=== PATIENT | male | born 1960 | race Caucasian/White ===

== ENCOUNTER 2018-01-31 01:17 | Emergency (ER) | payer MEDICAID ==
[~2018-01-31] VITALS: Ht 170.2 cm; Wt 84.8 kg
[2018-01-31 02:11] LABS: Basophils # (auto) 0.1 uL; Eosinophils # (auto) 0.1 uL; Eosinophils % (auto) 0.9 % (0.0-7.0); Hematocrit 40.1 % (41.0-53.0); Lymphocytes % (auto) 23.2 % (10.0-50.0); Mean Corpuscular Hemoglobin 32.6 pg (28.0-32.0); Mean Corpuscular Hgb Conc. 34.9 g/dL (32.0-36.0); Mean Corpuscular Volume 93.5 fL (80.0-100.0); Monocytes % (auto) 11.6 % (0.0-12.0); Neutrophils # (auto) 5.4 uL; Neutrophils % (auto) 63.3 % (37.0-80.0); Nucleated Red Blood Cells % 0.1 %; Platelet Count (auto) 252 10^3/uL (140-450); Red Blood Cells 4.29 10^6/uL (4.5-5.90); Red Cell Distribution Width 12.4 % (11.8-14.3); White Blood Cell 8.6 10^3/uL (4.4-10.8)
[2018-01-31] MEDS ORDERED: cloNIDine HCL 0.1 MG TAB PO ONE (02:15)
[2018-01-31 02:22] LABS: Albumin 3.4 g/dL (3.4-5.0); BUN/Creatinine Ratio 9.2; Calcium 8.4 mg/dL (8.5-10.1); Magnesium 1.7 mg/dL (1.6-2.6)
[2018-01-31 02:23] LABS: Potassium 2.7 mmol/L (3.5-5.1)
[2018-01-31 02:27] LABS: Bilirubin, Total 0.7 mg/dL (0.2-1.0); INR 0.93 (0.9-1.15); Partial Thromboplastin Time 27.1 sec (23.78-33.04); Total Protein 7.9 g/dL (6.4-8.2)
[2018-01-31] MEDS ORDERED: POTASSIUM CHL 20 Meq TABLET PO ONE (02:30)
[2018-01-31 02:55] VITALS: BP 132/92
== END 2018-01-31 03:02 | disposition left against medical advice (07) ==
LOC: ER 01:19
DX: R07.89 Other chest pain (principal); I10 Essential (primary) hypertension; R41.82 Altered mental status, unspecified; Z53.21 Procedure and treatment not carried out due to patient leaving prior to being seen by health care provider
CPT/HCPCS: 36415; 70450; 71045; 80053; 80320; 83735; 83880; 84484; 85025; 85610; 85730; 93005

== ENCOUNTER → 2018-08-31 | Emergency (ER) | payer MEDICAID | END | disposition left against medical advice (07) | LOC: ER 21:59 | DX: R10.9 Unspecified abdominal pain (principal); Z53.21 Procedure and treatment not carried out due to patient leaving prior to being seen by health care provider ==

== ENCOUNTER 2018-12-21 20:04 | Emergency (ER) | payer MEDICAID ==
[~2018-12-21] VITALS: Ht 170.2 cm; Wt 90.7 kg
[2018-12-21 20:37] VITALS: BP 175/85
[2018-12-21] MEDS ORDERED: SODIUM CHLORIDE 0.9% 500 ML IV ONE (20:59)
[2018-12-21] MEDS ORDERED: ASPirin 81 mg TAB PO ONE (21:00)
[2018-12-21] MEDS ORDERED: MORPHINE SULF INJ 2 MG/ML SYRINGE 1ML IV ONE (21:00)
[2018-12-21 21:25] LABS: Basophils # (auto) 0 uL; Basophils % (auto) 0.7 % (0.0-2.0); Eosinophils # (auto) 0.2 uL; Eosinophils % (auto) 3.6 % (0.0-7.0); Hematocrit 42.3 % (41.0-53.0); Hemoglobin 14.6 g/dL (13.5-17.5); Lymphocytes # (auto) 2.4 uL; Lymphocytes % (auto) 36.8 % (10.0-50.0); Mean Corpuscular Hemoglobin 32.6 pg (28.0-32.0); Mean Corpuscular Hgb Conc. 34.4 g/dL (32.0-36.0); Mean Corpuscular Volume 94.7 fL (80.0-100.0); Monocytes # (auto) 0.5 uL; Monocytes % (auto) 7.3 % (0.0-12.0); Neutrophils # (auto) 3.4 uL; Neutrophils % (auto) 51.6 % (37.0-80.0); Platelet Count (auto) 204 10^3/uL (140-450); Red Blood Cells 4.47 10^6/uL (4.5-5.90); Red Cell Distribution Width 13.5 % (11.8-14.3); White Blood Cell 6.6 10^3/uL (4.4-10.8)
[2018-12-21] MEDS ORDERED: THIAMINE 100mg/ml INJ (200mg/2ml VIAL) IV ONE (21:30)
[2018-12-21 21:36] LABS: Albumin 3.7 g/dL (3.4-5.0); Anion Gap 10 (5-15); Blood Urea Nitrogen 16 mg/dL (7-18); Calcium 8.7 mg/dL (8.5-10.1); Carbon Dioxide 26 mmol/L (21-32); Chloride 107 mmol/L (98-107); Glucose 113 mg/dL (74-106); Magnesium 2.4 mg/dL (1.6-2.6); Potassium 3.4 mmol/L (3.5-5.1); Sodium 143 mmol/L (136-145)
[2018-12-21 21:45] LABS: Alanine Aminotransferase 112 U/L (16-61); Alkaline Phosphatase 107 U/L (45-117); Aspartate Aminotransferase 116 U/L (15-37); Bilirubin, Total 0.3 mg/dL (0.2-1.0); GFR African American 92 mL/min; GFR Non-African American 76 mL/min; Total Protein 7.3 g/dL (6.4-8.2)
[2018-12-21 22:21] LABS: INR 0.92 (0.9-1.15); Partial Thromboplastin Time 25.9 sec (23.78-33.04); Prothrombin Time 9.9 sec (9.27-12.13)
[2018-12-21 23:50] LABS: Acetaminophen < 2.0 ug/mL (10-30); Salicylate < 1.7 mg/dL (2.8-20.0)
[2018-12-22] MEDS ORDERED: NITROGLYCERIN 0.4 MG SL TAB SL ONE (10:00)
== END 2018-12-21 22:31 | disposition left against medical advice (07) ==
LOC: EDBD 20:04 → ER 20:08
DX: R07.9 Chest pain, unspecified (principal); R51 Headache; K85.90 Acute pancreatitis without necrosis or infection, unspecified; I25.10 Atherosclerotic heart disease of native coronary artery without angina pectoris; I10 Essential (primary) hypertension; Z98.61 Coronary angioplasty status; Z53.29 Procedure and treatment not carried out because of patient's decision for other reasons
CPT/HCPCS: 36415; 80053; 80320; 80329; 83690; 83735; 83880; 84484; 85025; 85379; 85610; 85730; 93005; 94761